=== PATIENT | female | born 1950 | race Caucasian/White ===

== ENCOUNTER → 2020-08-07 | Outpatient (CLI) | payer MEDICARE, OTHER ==
--- NOTE | 2020-08-07 10:39 | Diagnostic Imaging Report ---
Ultrasound left hand palm History: Muscle rediscover 6 weeks ago. Tender to pouch. Technique: Linear transducer used for examination of the region of interest pointed out by the patient. The right palm same area imaged for comparison. Findings: Nothing significant visualized. There is no mass. Impression: as above. Signed by: Messi Chaves MD on 08/07/2020 10:36 AM
== END ==
LOC: US 09:35
PROVIDERS: ATTEND Specialist
DX: R22.32 Localized swelling, mass and lump, left upper limb (principal)
CPT/HCPCS: 76882

== ENCOUNTER 2021-04-17 18:36 | Emergency (ER) | payer MEDICARE, OTHER ==
[~2021-04-17] VITALS: Ht 160 cm; Wt 77.6 kg
[2021-04-17] MEDS ORDERED: SODIUM CHLORIDE 0.9% 1000ML 1,000 ML IV STA (18:57)
[2021-04-17] MEDS ORDERED: ONDANSETRON HCL INJ 2MG/ML 2ML 2 MG/ML VIAL IV ONE (19:00)
[2021-04-17] MEDS ORDERED: KETOROLAC TROMETHAMINE 30 MG/ML VIAL IV ONE (19:00)
[2021-04-17] MEDS ORDERED: DEXAMETHASONE SOD PHOS 10 MG/1 ML VIAL IV ONE (19:00)
[2021-04-17] MEDS ORDERED: HYDROCODONE/APAP 5MG-325MG TAB PO ONE ×2 (19:00→19:15)
[2021-04-17] MEDS ORDERED: FAMOTIDINE 20 MG/2 ML VIAL IV ONE (19:00)
[2021-04-17] MEDS ORDERED: SODIUM CHLORIDE 0.9% 50ML 0 ML ONE (19:14)
[2021-04-17] MEDS ORDERED: IOPAMIDOL 370 MG/ML 200 ML INFUS..BTL INJ ONE (19:14)
[2021-04-17] MEDS ORDERED: KETOROLAC TROMETHAMINE 30 MG/ML VIAL IM ONE (19:15)
[2021-04-17] MEDS ORDERED: ONDANSETRON HCL 4 MG ORAL DISINTEGRATING TAB PO ONE (19:15)
[2021-04-17] MEDS ORDERED: IBUPROFEN IB200 MG PO (19:21)
[2021-04-17] MEDS ORDERED: ACETAMINOPHEN500 MG PO (19:21)
[2021-04-17] MEDS ORDERED: ULTRAM 50MG50 MG PO (19:21)
[2021-04-17] MEDS ORDERED: ONDANSETRON ODT4 MG PO (19:22)
[2021-04-17] MEDS ORDERED: ONDANSETRON HCL 4 MG ORAL DISINTEGRATING TAB ONE (19:28)
[2021-04-17] MEDS ORDERED: KETOROLAC TROMETHAMINE 30 MG/ML VIAL ONE (19:28)
[2021-04-17] MEDS ORDERED: HYDROCODONE/APAP 5MG-325MG TAB ONE (19:28)
[2021-04-17 20:24] VITALS: BP 162/98
== END 2021-04-17 20:24 | disposition home or self-care (01) ==
LOC: FSED 18:40
DX: R07.89 Other chest pain (principal); S20.211A Contusion of right front wall of thorax, initial encounter; W01.0XXA Fall on same level from slipping, tripping and stumbling without subsequent striking against object, initial encounter; Y93.01 Activity, walking, marching and hiking; I25.10 Atherosclerotic heart disease of native coronary artery without angina pectoris; Z95.810 Presence of automatic (implantable) cardiac defibrillator
CPT/HCPCS: 71101; 96372; 99283; J1885; Q0162; Q9967

== ENCOUNTER 2021-07-23 10:37 | Emergency (ER) | payer MEDICARE, OTHER ==
[~2021-07-23] VITALS: Ht 160 cm; Wt 77.1 kg
[~2021-07-23 10:37] MED LIST: ACETAMINOPHEN500 MG PO; IBUPROFEN IB200 MG PO; ONDANSETRON ODT4 MG PO; ULTRAM 50MG50 MG PO
[2021-07-23] MEDS ORDERED: ULTRAM 50MG50 MG PO (10:51)
[2021-07-23] MEDS ORDERED: ACETAMINOPHEN500 MG PO (10:51)
== END 2021-07-23 12:30 | disposition home or self-care (01) ==
LOC: FSED 10:40
DX: S93.602A Unspecified sprain of left foot, initial encounter (principal); W01.0XXA Fall on same level from slipping, tripping and stumbling without subsequent striking against object, initial encounter; Y93.01 Activity, walking, marching and hiking; I25.10 Atherosclerotic heart disease of native coronary artery without angina pectoris; I25.2 Old myocardial infarction; Z95.810 Presence of automatic (implantable) cardiac defibrillator
CPT/HCPCS: 99283

== ENCOUNTER 2021-11-07 08:58 | Emergency (ER) | payer MEDICARE, OTHER ==
[~2021-11-07] VITALS: Ht 160 cm; Wt 77.1 kg
[2021-11-07] MEDS ORDERED: METHOCARBAMOL500 MG PO (09:57)
== END 2021-11-07 10:10 | disposition home or self-care (01) ==
LOC: FSED 09:19
DX: S29.012A Strain of muscle and tendon of back wall of thorax, initial encounter (principal); W01.0XXA Fall on same level from slipping, tripping and stumbling without subsequent striking against object, initial encounter; Y93.E1 Activity, personal bathing and showering; Y92.002 Bathroom of unspecified non-institutional (private) residence as the place of occurrence of the external cause; I10 Essential (primary) hypertension; E03.9 Hypothyroidism, unspecified; I25.10 Atherosclerotic heart disease of native coronary artery without angina pectoris; L40.50 Arthropathic psoriasis, unspecified; I25.2 Old myocardial infarction
CPT/HCPCS: 72072; 99283

== ENCOUNTER 2024-07-05 11:33 | Emergency (ER) | payer MEDICARE, OTHER ==
[~2024-07-05] VITALS: Ht 160 cm; Wt 77.1 kg
[~2024-07-05 11:33] MED LIST changes: +METHOCARBAMOL500 MG PO
[2024-07-05 14:30] VITALS: PULSE 59; RESP 14; TEMP 98.6; O2SAT 96
== END 2024-07-05 15:31 | disposition home or self-care (01) ==
LOC: FSED 11:49
DX: R06.00 Dyspnea, unspecified (principal); I48.91 Unspecified atrial fibrillation; I10 Essential (primary) hypertension; E78.5 Hyperlipidemia, unspecified; M54.9 Dorsalgia, unspecified; G89.29 Other chronic pain; L40.50 Arthropathic psoriasis, unspecified; I25.10 Atherosclerotic heart disease of native coronary artery without angina pectoris; Z11.52 Encounter for screening for COVID-19; R94.31 Abnormal electrocardiogram [ECG] [EKG]; I25.2 Old myocardial infarction; Z86.73 Personal history of transient ischemic attack (TIA), and cerebral infarction without residual deficits
CPT/HCPCS: 0223U; 71046; 80053; 82553; 84484; 85025; 85379; 87400; 93005; 99284

== ENCOUNTER 2024-08-10 16:25 | Observation (INO) | payer MEDICARE, OTHER ==
[2024-08-10] VITALS (8 sets, daily range): BP systolic 122–160; BP diastolic 61–95; PULSE 59–60; RESP 18; TEMP 97.7–98; O2SAT 96–100
[~2024-08-10] VITALS: Ht 160 cm; Wt 68.9 kg
[2024-08-10] MEDS ORDERED: SODIUM CHLORIDE 0.9% 1000ML 1,000 ML ONE (17:58)
[2024-08-10] MEDS: POTASSIUM CHLORIDE 20 MEQ TAB CR PO STA ×2 (18:04→22:22)
[2024-08-10] MEDS: POTASSIUM CHLORIDE 20MEQ/100ML 100 ML IV ONE (18:05)
[2024-08-10] MEDS: MAGNESIUM SULFATE 2GM/50ML 50 ML IV ONE (18:05)
[2024-08-10] MEDS ORDERED: SODIUM CHLORIDE FLUSH 10 ML SYR INJ PRN (18:30)
[2024-08-10] MEDS ORDERED: ONDANSETRON HCL INJ 2MG/ML 2ML 2 MG/ML VIAL IV PRN (18:30)
[2024-08-10] MEDS: SODIUM CHLORIDE 0.9% 1000ML 1,000 ML IV SCH (20:13)
[2024-08-10] MEDS ORDERED: ACETAMINOPHEN 325 MG TAB PO PRN (20:45)
[2024-08-10] MEDS ORDERED: XARELTO20 MG PO (20:48)
[2024-08-10] MEDS ORDERED: LEVOTHYROXINE75 MCG PO (20:48)
[2024-08-10] MEDS ORDERED: NIFEDIPINE ER30 M1 PO ×2 (20:48→20:49)
[2024-08-10] MEDS ORDERED: ARAVA20 MG PO (20:48)
[2024-08-10] MEDS ORDERED: PRAVASTATIN SOD20 MG PO (20:48)
[2024-08-10] MEDS ORDERED: POTASSIUM CHLO20 ME1 PO (20:48)
[2024-08-10] MEDS ORDERED: OXYBUTYNIN CHLOR5 M1 PO (20:48)
[2024-08-10] MEDS ORDERED: DOXAZOSIN MESYLA2 MG PO (20:48)
[2024-08-10] MEDS ORDERED: MAGNESIUM OXID400 MG PO (20:48)
[2024-08-10] MEDS ORDERED: ISOSORBIDE MONO60 MG PO (20:48)
[2024-08-10] MEDS ORDERED: BETAPACE120 MG PO (20:48)
[2024-08-10] MEDS ORDERED: VITAMIN D350 MCG PO (20:49)
[2024-08-10] MEDS ORDERED: CLONIDINE HCL0.1 MG PO (20:49)
[2024-08-10] MEDS ORDERED: ASPIRIN81 MG PO (20:49)
[2024-08-10] MEDS ORDERED: ALENDRONATE SOD70 MG PO (20:49)
[2024-08-11 03:03] VITALS: BP 119/72; PULSE 59; RESP 18; TEMP 98; O2SAT 98
[2024-08-11 06:35] LABS: BASOPHILS # (AUTO) 0.1 (0.0-0.1); BASOPHILS % 1.3 % (0.0-1.0); EOSINOPHILS % 0.3 % (0.0-6.0); HEMOGLOBIN 12.4 g/dL (12.0-16.0); LYMPHOCYTES % 27.8 % (18.0-39.1); MEAN CORPUSCULAR HEMOGLOBIN 29.7 pg (28-32); MEAN CORPUSCULAR HGB CONC 32.6 g/dL (31-35); MEAN CORPUSCULAR VOLUME 91.1 fL (81-99); MONOCYTES # (AUTO) 0.5 (0.2-0.8); MONOCYTES % 14.6 % (4.4-11.3); NEUTROPHILS # (AUTO) 2.1 (2.1-6.9); NEUTROPHILS % 55.2 % (38.7-80.0); PLATELET COUNT 178 x10e3/uL (140-360); RED BLOOD COUNT 4.17 x10e6/uL (3.6-5.1); RED CELL DISTRIBUTION WIDTH 14.4 % (11.7-14.4); WHITE BLOOD COUNT 3.71 x10e3/uL (4.8-10.8)
[2024-08-11 07:11] LABS: ALBUMIN 3.2 g/dL (3.5-5.0); ANION GAP 16.8 mmol/L (8-16); BILIRUBIN,TOTAL 0.5 mg/dL (0.2-1.2); CALCIUM 9.3 mg/dL (8.4-10.2); CREATININE, SERUM 0.78 mg/dL (0.57-1.11); MAGNESIUM 2.2 MG/DL (1.3-2.1); POTASSIUM 3.8 mmol/L (3.5-5.1); TOTAL PROTEIN 6.4 g/dL (6.5-8.1)
[2024-08-11 08:00] VITALS: BP 148/81; PULSE 60; RESP 19; TEMP 97.5; O2SAT 98
[2024-08-11] MEDS: PRAVASTATIN 20 MG TAB PO SCH (09:00)
[2024-08-11] MEDS: OXYBUTYNIN CHLORIDE XL 5 MG TAB PO SCH (09:00)
[2024-08-11] MEDS ORDERED: LEVOTHYROXINE SODIUM 75 MCG TAB PO SCH (09:00)
[2024-08-11] MEDS: NIFEDIPINE CR 30 MG TAB PO SCH (09:00)
[2024-08-11] MEDS: DOCUSATE SODIUM 100 MG CAP PO SCH (09:00)
[2024-08-11] MEDS: ISOSORBIDE MONONITRATE 30 MG TAB CR PO SCH (09:00)
[2024-08-11] MEDS: SENNOSIDES 8.6 MG TAB PO SCH (09:00)
[2024-08-11] MEDS: ASPIRIN 81 MG CHEW TAB PO SCH (09:00)
[2024-08-11] MEDS: SOTALOL HCL 120 MG TABLET PO SCH (09:00)
[2024-08-11 11:07] VITALS: BP 140/80; PULSE 50; RESP 20; TEMP 97.9; O2SAT 99
[2024-08-11] MEDS ORDERED: NIFEDIPINE CR 30 MG TAB PO SCH (14:00)
[2024-08-11] MEDS ORDERED: ONDANSETRON HCL 4 MG ORAL DISINTEGRATING TAB PO PRN (14:00)
[2024-08-11] MEDS ORDERED: MAGNESIUM OXIDE 400 MG TAB PO SCH (21:00)
[2024-08-11] MEDS ORDERED: DOXAZOSIN MESYLATE 2 MG TAB PO SCH (21:00)
[2024-08-11] MEDS ORDERED: RIVAROXABAN 20 MG TABLET PO SCH (21:00)
== END 2024-08-11 13:50 | disposition home or self-care (01) ==
LOC: FSED 16:38 → ERHOLD 18:42 → MED/SURG 20:07
PROVIDERS: ADMIT Internal Medicine; ATTEND Internal Medicine
DX: R55 Syncope and collapse (principal); E87.6 Hypokalemia; Z95.810 Presence of automatic (implantable) cardiac defibrillator; E87.1 Hypo-osmolality and hyponatremia; H53.8 Other visual disturbances; S00.83XA Contusion of other part of head, initial encounter; W18.11XA Fall from or off toilet without subsequent striking against object, initial encounter; Z91.81 History of falling; Y92.012 Bathroom of single-family (private) house as the place of occurrence of the external cause; I48.91 Unspecified atrial fibrillation; E78.5 Hyperlipidemia, unspecified; M06.9 Rheumatoid arthritis, unspecified; Z79.01 Long term (current) use of anticoagulants; Z88.1 Allergy status to other antibiotic agents; Z88.8 Allergy status to other drugs, medicaments and biological substances
CPT/HCPCS: 36415; 70450; 70486; 80053 ×2; 81003; 83735; 85025 ×2; 93005; 97161; 99284; G0378 ×2; J3475; J3480; J7030 ×2

== ENCOUNTER 2024-08-24 16:08 | Emergency (ER) | payer MEDICARE, OTHER ==
[~2024-08-24] VITALS: Ht 160 cm; Wt 70.1 kg
[~2024-08-24 16:08] MED LIST changes: +ALENDRONATE SOD70 MG PO; +ARAVA20 MG PO; +ASPIRIN81 MG PO; +BETAPACE120 MG PO; +CLONIDINE HCL0.1 MG PO; +DOXAZOSIN MESYLA2 MG PO; +ISOSORBIDE MONO60 MG PO; +LEVOTHYROXINE75 MCG PO; +MAGNESIUM OXID400 MG PO; +NIFEDIPINE ER30 M1 PO; +OXYBUTYNIN CHLOR5 M1 PO; +POTASSIUM CHLO20 ME1 PO; +PRAVASTATIN SOD20 MG PO; +VITAMIN D350 MCG PO; +XARELTO20 MG PO
[2024-08-24 16:20] VITALS: TEMP 97.9
[2024-08-24] MEDS ORDERED: HYDROCHLOROTHIA25 MG PO (16:41)
[2024-08-24] MEDS ORDERED: ACETAZOLAMIDE125 MG (16:41)
[2024-08-24 17:00] VITALS: PULSE 70; RESP 18; O2SAT 94
== END 2024-08-24 17:00 | disposition home or self-care (01) ==
LOC: FSED 16:11
DX: R06.00 Dyspnea, unspecified (principal); I10 Essential (primary) hypertension; E11.9 Type 2 diabetes mellitus without complications; I48.91 Unspecified atrial fibrillation; E03.9 Hypothyroidism, unspecified; I25.10 Atherosclerotic heart disease of native coronary artery without angina pectoris; E78.5 Hyperlipidemia, unspecified; M06.9 Rheumatoid arthritis, unspecified; F41.9 Anxiety disorder, unspecified; M54.9 Dorsalgia, unspecified; G89.29 Other chronic pain; I25.2 Old myocardial infarction
CPT/HCPCS: 99282